=== PATIENT | female | born 1995 | race Hispanic/Latino ===

== ENCOUNTER 2023-02-15 18:17 | Day surgery (SDC) | payer SELFPAY ==
[2023-02-15 19:13] VITALS: BMI 39.8
[2023-02-15] MEDS ORDERED: hydrALAZINE 20 MG/ML VIAL SLOW IVP PRN (19:42)
[2023-02-15 19:45] LABS: Fetal Membranes Rupture No Membranes Rupture (No Rupture)
[2023-02-15] MEDS ORDERED: Acetaminophen 500 MG TAB PO SCH (21:00)
== END 2023-02-15 21:05 | disposition home or self-care (01) ==
LOC: CSHLD/OP 18:17
PROVIDERS: ATTEND Emergency Medicine
DX: O26.893 Other specified pregnancy related conditions, third trimester (principal); O99.213 Obesity complicating pregnancy, third trimester; E66.9 Obesity, unspecified; Z3A.36 36 weeks gestation of pregnancy; Z88.0 Allergy status to penicillin
CPT/HCPCS: 84112; 99283

== ENCOUNTER 2023-03-01 10:10 | Inpatient (IN) | payer MEDICAID, SELFPAY ==
[2023-02-26 11:34] LABS: Hemoglobin 11.4 g/dL (12.0-15.5); Platelet Count 281 10x3/uL (150-450)
[2023-02-26 12:00] LABS: Syphilis Antibody Nonreactive (Nonreactive); Syphilis Antibody Index 0.04 S/CO (<1.00 Non-Reactive)
[2023-02-26 12:02] LABS: HIV (1/2) Antibody/Antigen Non-Reactive (NonReactive); HIV 1/2 INDEX 0.07 S/CO (<1.00)
[2023-02-26 14:31] LABS: HBSAg Index 0.16 S/CO (0-0.99); Hep B Surf Ag Non-Reactive S/CO (NonReactive)
[2023-03-01 10:17] VITALS: BMI 40.4
[2023-03-01] MEDS ORDERED: Ondansetron PF 4 MG/2 ML Vial IVP PRN ×2 (10:31→10:51)
[2023-03-01] MEDS ORDERED: Bicitra 30 ML UDCUP PO PRN (10:31)
[2023-03-01] MEDS ORDERED: Famotidine/PF 20 mg/2ml Vial SLOW IVP PRN (10:31)
[2023-03-01] MEDS ORDERED: Tranexamic Acid 1,000 MG/10 ML VIAL IVP PRN (10:31)
[2023-03-01] MEDS ORDERED: Promethazine HCl 25 MG/ML VIAL IM PRN ×2 (10:31→10:51)
[2023-03-01] MEDS ORDERED: Misoprostol 200 MCG TAB PR PRN (10:31)
[2023-03-01] MEDS ORDERED: hydrALAZINE 20 MG/ML VIAL SLOW IVP PRN ×2 (10:31→17:42)
[2023-03-01] MEDS ORDERED: Carboprost 250 MCG/ML AMP IM PRN (10:37)
[2023-03-01] MEDS ORDERED: Diphenoxylate HCl/Atropine Tablet PO PRN (10:37)
[2023-03-01] MEDS ORDERED: Methylergonovine 0.2 MG/ML VIAL IM PRN (10:37)
[2023-03-01] MEDS ORDERED: NS w/ Oxytocin 30 units 500 ML IV SCH (10:45)
[2023-03-01] MEDS ORDERED: Lactated Ringer's 1,000 ML IV SCH (10:45)
[2023-03-01] MEDS ORDERED: Clindamycin/D5W 900 MG in Premix Bag 1 BAG IVPB SCH (10:45)
[2023-03-01] MEDS ORDERED: Moisturizing Cream (Eucerin) 113 GM JAR TOP PRN (10:51)
[2023-03-01] MEDS ORDERED: Promethazine HCl 25 MG SUPP PR PRN (10:51)
[2023-03-01] MEDS ORDERED: Meperidine HCl/PF 25 MG/ML VIAL SLOW IVP PRN (10:51)
[2023-03-01] MEDS ORDERED: Naloxone HCl 0.4 mg/ml Vial IVP PRN ×2 (10:51)
[2023-03-01] MEDS ORDERED: Fentanyl 100 MCG/2 ML VIAL SLOW IVP PRN (10:51)
[2023-03-01] MEDS ORDERED: Naloxone HCl 0.4 mg/ml Vial IV PRN (10:51)
[2023-03-01] MEDS ORDERED: Ondansetron HCl/PF 4 MG/2 ML Vial IVP PRN (10:51)
[2023-03-01] MEDS ORDERED: HYDROmorphone 2 MG/ML VIAL SLOW IVP PRN (10:51)
[2023-03-01] MEDS ORDERED: diphenhydrAMINE 50 MG/ML VIAL IVP PRN (10:51)
[2023-03-01] MEDS ORDERED: Ketorolac Tromethamine 30 MG/ML VIAL IVP SCH (11:00)
[2023-03-01] MEDS ORDERED: Communication Order-Pharmacy FS SCH (11:00)
[2023-03-01] MEDS ORDERED: fentaNYL 50 mcg/mL 1 mL Vial ONE (12:12)
[2023-03-01] MEDS ORDERED: Morphine PF 10 MG/10 ML VIAL ONE (12:12)
[2023-03-01] MEDS ORDERED: Dexamethasone 4 mg/ml Vial ONE (12:13)
[2023-03-01] MEDS ORDERED: Ondansetron PF 4 MG/2 ML Vial ONE (12:13)
[2023-03-01] MEDS ORDERED: Phenylephrine 10 MG/ML VIAL ONE (13:22)
[2023-03-01] MEDS ORDERED: Oxytocin 10 UNITS/ML VIAL ONE (13:22)
[2023-03-01] MEDS: Ketorolac Tromethamine 30 MG/ML VIAL IVP PRN (14:42)
[2023-03-01] MEDS ORDERED: Acetaminophen 325 MG TAB PO PRN (17:42)
[2023-03-01] MEDS ORDERED: Lanolin Ointment 7 GM TUBE TOP PRN (17:42)
[2023-03-01] MEDS ORDERED: Bisacodyl 10 MG SUPP PR PRN (17:42)
[2023-03-01] MEDS ORDERED: Boostrix 0.5 ML (Tdap) VIAL (>/=7 yrs of age) IM ONE (17:42)
[2023-03-02] MEDS: Ketorolac Tromethamine 30 MG/ML VIAL IVP PRN ×2 (01:51→07:59)
[2023-03-02 04:53] LABS: Mean Corpuscular HGB CONC 33.7 g/dL (32.0-36.0); Mean Corpuscular Hemoglobin 28.5 pg (27.0-33.0); Mean Corpuscular Volume 84.5 fl (81.6-98.3); Mean Platelet Volume 11.8 fl (7.4-10.4); Platelet Count 220 10x3/uL (150-450); RBC Distribution Width 13.3 % (11.5-14.5); Red Blood Cell (RBC) Count 3.16 10x6/uL (3.90-5.03); White Blood Cell (WBC) Count 12.1 10x3/uL (3.5-10.5)
[2023-03-02] MEDS: Ferrous Sulfate 325 MG TAB PO SCH ×3 (07:04→21:56)
[2023-03-02] MEDS: HYDROcodone/Acetaminophen 5/325 mg Tablet PO PRN ×3 (07:59→19:44)
[2023-03-02] MEDS ORDERED: Prenatal Vitamin 1 TAB PO SCH (09:00)
[2023-03-02] MEDS ORDERED: Polyethylene Glycol 3350 17 GM Packet PO SCH (09:00)
[2023-03-02] MEDS: Ibuprofen 800 MG TAB PO SCH ×2 (14:26→21:56)
[2023-03-03] MEDS: HYDROcodone/Acetaminophen 5/325 mg Tablet PO PRN (00:52)
[2023-03-03] MEDS: Ibuprofen 800 MG TAB PO SCH (05:15)
[2023-03-03 07:27] VITALS: BP 95/62; TEMP 98
== END 2023-03-03 11:50 | disposition home or self-care (01) | DRG 788 ==
LOC: CSHLD 10:10 → CSHPP 16:18
PROVIDERS: ADMIT Family Medicine; ATTEND Family Medicine
PROC: 10D00Z1 Extraction of Products of Conception, Low, Open Approach (ICD-10-PCS; principal; 2023-03-01)
DX: O34.211 Maternal care for low transverse scar from previous cesarean delivery (principal); Z3A.39 39 weeks gestation of pregnancy; Z37.0 Single live birth; O35.8XX0 Maternal care for other (suspected) fetal abnormality and damage, not applicable or unspecified; O99.214 Obesity complicating childbirth; E66.01 Morbid (severe) obesity due to excess calories; Z82.49 Family history of ischemic heart disease and other diseases of the circulatory system; Z88.0 Allergy status to penicillin; O69.89X0 Labor and delivery complicated by other cord complications, not applicable or unspecified; D64.9 Anemia, unspecified; O90.81 Anemia of the puerperium
CPT/HCPCS: 36415; 51702; 85014; 85018; 85027; 85049; 86780; 86850; 86900; 86901; 87340; 87389; J1100; J1885; J2274; J2370; J2405; J2590; J3010; J3490; J7120; S0028